=== PATIENT | female | born 1985 | race Caucasian/White ===

== ENCOUNTER 2016-10-22 21:17 | Emergency (ER) | payer OTHER ==
[2016-10-22 21:26] VITALS: BP 120/75
--- NOTE | 2016-10-22 21:45 | EDM.PDOC ---
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 Pain is bad enough that she lies still no position she cannot stand fully erect because of the pain. She's had no previous abdominal surgeries. Illness came on abruptly at about 1700 hours tonight. No blood noted in the diarrhea stools as mostly watery and yellow color. She is feeling better at the time of my examination with less abdominal pain. No vomiting. No fever or chills. No genitourinary complaints. She is clinically 20 weeks gestation. This is 2 para one. She went into early labor at 35 weeks gestation last which was able to be stopped. She is therefore quite anxious about premature labor. 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 (see below) (No) - Related Data Allergies/ADRs: Allergies Allergy/AdvReac Type Severity Reaction Status Date / Time Penicillins Allergy Hives Verified 10/22/16 21:23 Home Meds: Home Meds Vit No.130/Iron/FA [ Vitamins] 1 each PO DAILY 01/15/15 [ History] Ranitidine [Zantac] 12/05/15 [History] Dicyclomine [Bentyl] 20 mg PO Q6H #2 tablet 10/22/16 [Rx] oxyCODONE HCl/Acetaminophen [Percocet 5-325 mg Tablet] 1 - 2 each PO Q4H PRN #5 tablet 10/22/16 [Rx] 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 [place] Teeth 2004 Social & Family History - Tobacco Use Smoking Status *Q: Never Smoker Second Hand Smoke Exposure: No - Alcohol Use Days Per Week of Alcohol Use: 0 - Recreational Drug Use Recreational Drug Use: No - Living Situation & Occupation Living situation: Reports: Occupation: employed ED ROS GENERAL - Review of Systems Review Of Systems: See Below Constitutional: Denies: fever, chills, malaise, weakness, fatigue, decreased appetite, weight loss HEENT: Reports: No symptoms Respiratory: Reports: No Symptoms Cardiovascular: Reports: No symptoms Endocrine: Reports: no symptoms GI/Abdominal: Reports: Abdominal pain (See history present) : Reports: frequency. Denies: dysuria, flank pain, hematuria, incontinence, irregular menses Musculoskeletal: Reports: no symptoms Skin: Reports: no symptoms Neurological: Reports: No Symptoms Psychiatric: Reports: No symptoms, Other Hematologic/Lymphatic: Reports: no symptoms Immunologic: Reports: no symptoms ED EXAM, GI/ABD - Physical Exam Exam: See Below Exam Limited By: No limitations General Appearance: alert, WD/WN, anxious, moderate distress Eyes: bilateral: normal appearance Throat/Mouth: Normal inspection, Normal lips, Normal teeth, Normal oropharynx Head: atraumatic, normocephalic Neck: normal inspection, supple, non-tender, full range of motion Respiratory/Chest: no respiratory distress, lungs clear, normal breath sounds, no accessory muscle use Cardiovascular: normal peripheral pulses, regular rate, rhythm, no edema, no gallop, no JVD, no murmur GI/Abdominal: soft, non tender, hyperactive bowel sounds (Markedly hyperactive bowel sounds in all 4 quadrants.). No: guarding, rebound, rigidity, splenomegaly Back Exam: normal inspection, full range of motion Extremities: normal inspection, normal range of motion, non-tender, no pedal edema, normal capillary refill Neurological: alert, oriented, CN II-XII intact, normal cognition, normal gait Psychiatric: normal affect, anxious Skin Exam: Warm, Dry, Intact, Normal color, No rash Course - Vital Signs Last Recorded V/S: Last Vital Signs Temp 36.7 C 10/22/16 21:23 Pulse 71 10/22/16 21:23 Resp 18 10/22/16 21:23 BP 120/75 10/22/16 21:23 Pulse Ox 100 10/22/16 21:23 - Orders/Labs/Meds Labs: Laboratory Tests 10/22/16 Range/Units 22:00 Urine Color Light yellow (Yellow) Urine Appearance Clear (Clear) Urine pH 7.0 (5.0-8.0) Ur Specific [place] 1.015 (1.005-1.030) Urine Protein Negative (Negative) Urine Glucose (UA) Negative (Negative) Urine Ketones Negative (Negative) Urine Occult Blood 1+ H (Negative) Urine Nitrite Negative (Negative) Urine Bilirubin Negative (Negative) Urine Urobilinogen 0.2 (0.2-1.0) Ur Leukocyte Esterase Negative (Negative) Urine RBC 0-5 (0-5) /hpf Urine WBC 0-5 (0-5) /hpf Ur Epithelial Cells 5-10 H (0-5) /hpf Urine Bacteria Few (FEW) /hpf Urine Mucus Not seen (FEW) /hpf Meds: Medications Discontinued Medications Generic Name Dose Route Start Last Admin Trade Name Lucasq PRN Reason Stop Dose Admin Dicyclomine HCl 20 mg 10/22/16 21:56 10/22/16 22:08 Bentyl PO 10/22/16 21:57 20 mg ONETIME ONE Administration Dicyclomine HCl Confirm 10/22/16 23:22 Bentyl Administered 10/22/16 23:23 Dose 40 mg .ROUTE .STK-MED ONE Oxycodone/Acetaminophen 1 tab 10/22/16 21:56 10/22/16 22:09 Percocet 325-5 Mg PO 10/22/16 21:57 1 tab ONETIME ONE Administration - Radiology Interpretation Free Text/Narrative:: 22-year-old female presents to the ED with acute onset of marked large volume diarrhea stools with diffuse abdominal cramping pain starting about 1700 hours tonight. His reports she's had about 10 bowel movements. She's been drinking Gatorade however without any problems. There is no associated nausea or vomiting. No fever or chills. Diarrhea did not contain any blood. It's watery and slightly yellow in color. No real good history to support foodborne illness since her 's been with her all weekend and eating the same things. On examination shows active bowel sounds in all 4 quadrants. Her abdomen is soft palpation with no organomegaly or masses. Gravid uterus at the umbilicus compatible with 20 weeks gestation. heart tones were documented at 144 on Doppler. She has no vaginal bleeding or spotting. Assessment acute viral gastroenteritis. We'll send her over to OB for her Toprol although at this stage of gestation is hard to picker and packer uterine contractions but I'm not so worried that it'll be positive. She'll have a urinalysis and then come back to the ED after toco was done. Give her Bentyl 20 mg by mouth and one Percocet 5 325 mg tablets to alleviate abdominal cramping pain. She will drink Gatorade 5- 6 ounces per hour. - Re-Assessments/Exams Free Text/Narrative Re-Assessment/Exam: 10/22/16 23:00 patient returned from the OB suite where she had focal paresis carried out for 25 minutes. No significant contractions were appreciated. She has mild cramping at this time. She'll be discharged home on clear fluids as noted above. She may repeat Bentyl 20 mg orally and one Percocet 5 325 mg orally and 6 hours time if needed. Clear fluid diet advised next couple of days. She'll followup with Dr. Rosas if any further problems occur. Departure - Departure Time of Disposition: 21:59 Disposition: Home, Self-Care 01 Condition: fair Clinical Impression: Viral gastroenteritis, Second trimester Prescriptions: Dicyclomine [Bentyl] 20 mg PO Q6H #2 tablet oxyCODONE HCl/Acetaminophen [Percocet 5-325 mg Tablet] 1 - 2 each PO Q4H PRN #5 tablet PRN Reason: pain relief. Instructions: Viral Gastroenteritis, Adult, [id number] Referrals: Elmira Goldman MD [Primary Care Provider] - Forms: ED Department Discharge Additional Instructions: Evaluation in the ED today in regards to development of sudden onset of diffuse abdominal cramping pain and large volume diarrhea fluid loss. No fever. Goodfetal heart tones at 144/min . Very active bowl sounds appreciated on examination. Diagnoisis is viral gastroenteritis. Treatment is to drink gatorade or powerade --5-6 oz sipped per hour to maintain hydration. No dairy products or apple/grape juice until stols are formed back up. When hungry try soda crackers. If tolerated may advance to jello, broth soups and then toast and turkey/noodle/ rice soups etc. leukapheresis carried out did not reveal any signs of uterine contractions.
[2016-10-22] MEDS ORDERED: Acetaminophen/oxyCODONE 325-5 MG Tab PO ONE (21:56)
[2016-10-22] MEDS ORDERED: Dicyclomine 10 MG Cap PO ONE (21:56)
[2016-10-22] MEDS ORDERED: Acetaminophen/oxyCODONE 325-5 MG Tab ONE (23:22)
[2016-10-22] MEDS ORDERED: Dicyclomine 10 MG Cap ONE (23:22)
== END 2016-10-22 23:25 | disposition home or self-care (01) ==
LOC: JD.ED 21:17
DX: O99.89 Other specified diseases and conditions complicating pregnancy, childbirth and the puerperium (principal); A08.4 Viral intestinal infection, unspecified; Z88.0 Allergy status to penicillin; Z79.899 Other long term (current) drug therapy
CPT/HCPCS: 81001; 99284; A9270; 99283

== ENCOUNTER 2017-03-03 19:33 | Inpatient (IN) | payer OTHER ==
[2017-03-03] MEDS ORDERED: Lactated Ringers 1,000 ML ONE (20:13)
[2017-03-03] MEDS ORDERED: Oxytocin 10 Units/1 ML SDV IM ONE (20:28)
[2017-03-03] MEDS ORDERED: Methylergonovine 0.2 MG/1 ML Amp IM PRN (20:28)
[2017-03-03] MEDS ORDERED: Sodium Chloride 0.9% 10 ML Syringe FLUSH PRN (20:28)
[2017-03-03] MEDS: Lactated Ringers 1,000 ML IV SCH ×2 (20:30→22:07)
[2017-03-03] MEDS ORDERED: Oxytocin/Lactated Ringers 10 UNIT/1,000 ML BAG IV SCH ×2 (20:30)
--- NOTE | 2017-03-03 20:36 | PCM.LDHP ---
L&D History of Present Illness - General Date of Service: 03/03/17 Admit Problem/Dx: Admission Diagnosis/Problem Admission Diagnosis/Problem Source of Information: Patient - History of Present Illness Introduction:: 31 year old female at 39w1d presents with complaints of increased discharge and contractions. Cervix 4 cm from 3 cm in clinic yesterday. Uncomfortable with some contractions. PNC with myself complicated by closely spaced pregnancies. 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 [place] Teeth 2004 Social & Family History - Tobacco Use Smoking Status *Q: Never Smoker Second Hand Smoke Exposure: No - Alcohol Use Days Per Week of Alcohol Use: 0 - Recreational Drug Use Recreational Drug Use: No - Living Situation & Occupation Living situation: Reports: Occupation: Employed H&P Review of Systems - Review of Systems: Review Of Systems: See Below General: Reports: No Symptoms HEENT: Reports: No Symptoms Pulmonary: Reports: No Symptoms Cardiovascular: Reports: No Symptoms Gastrointestinal: Reports: No Symptoms Genitourinary: Reports: Discharge Musculoskeletal: Reports: No Symptoms Skin: Reports: No Symptoms Psychiatric: Reports: No Symptoms Neurological: Reports: No Symptoms Hematologic/Lymphatic: Reports: No Symptoms Immunologic: Reports: No Symptoms L&D Exam - Exam Exam: See Below - Vital Signs Weight: 79.379 kg - OB Specific Contraction Intensity: Mild to Moderate Movement: Active Heart Tones: Present Heart Tones per Min: 140 Heart Rate (FHR) Variability: Moderate (6-25 bmp) Presentation: Vertex - [place] Score [place] Score Cervix Position: Midposition [place] Score Consistency: Soft [place] Score Effacement: 51-70% [place] Score Dilation: 3-4 cm [place] Score Infant's Station: -2 [place] Score Total: 8 - Exam General: Alert, Oriented HEENT: PERRLA, Conjunctiva Clear, EACs Clear, EOMI, Hearing Intact, Mucosa Moist & [place], Nares Patent, Normal Nasal Septum, Posterior Pharynx Clear, TMs Clear Neck: Supple, Trachea Midline Lungs: Clear to Auscultation, Normal Respiratory Effort Cardiovascular: Regular Rate, Regular Rhythm GI/Abdominal Exam: Normal Bowel Sounds, Soft, Non-Tender, No Organomegaly, No Distention, No Abnormal Bruit, No Mass, Pelvis Stable Genitourinary: Normal external exam, Normal bimanual exam, Normal speculum exam Back Exam: Normal Inspection, Full Range of Motion Extremities: Normal Inspection, Normal Range of Motion, Non-Tender, No Pedal Edema, Normal Capillary Refill Skin: Warm, Dry, Intact Neurological: Cranial Nerves Intact, Reflexes Equal Bilateral Psychiatric: Alert, Normal Affect, Normal Mood Problem List Initiated/Reviewed/Updated: Yes Orders Last 24hrs: Active Orders 24 hr Category Date Time Status Activity as Tolerated [RC] PFP Care 03/03/17 20:28 Ordered Communication Order [RC] ASDIRECTED Care 03/03/17 20:28 Ordered Heart Tones [RC] ASDIRECTED Care 03/03/17 20:28 Ordered Notify Provider [RC] PFP Care 03/03/17 20:28 Ordered Notify Provider [RC] PRN Care 03/03/17 20:28 Ordered Peripheral IV Care [RC] . DIRECTED Care 03/03/17 20:28 Ordered Vital Signs [RC] PER UNIT ROUTINE Care 03/03/17 20:28 Ordered Regular Diet [DIET] Diet 03/03/17 Breakfast Ordered CBC WITH AUTO DIFF [HEME] Stat Lab 03/03/17 20:28 Ordered Lactated Ringers [Ringers, Lactated] 1,000 ml Med 03/03/17 20:30 Ordered IV ASDIRECTED Methylergonovine [Methergine] Med 03/03/17 20:28 Ordered 0.2 mg IM ONETIME PRN Oxytocin [Pitocin] Med 03/03/17 20:28 Once 10 unit IM ONETIME ONE Oxytocin/Lactated Ringers [Pitocin in LR 10 Units/1,000 Med 03/03/17 20:30 Ordered ML] 10 unit in 1,000 ml IV .CONTINUOUS Oxytocin/Lactated Ringers [Pitocin in LR 10 Units/1,000 Med 03/03/17 20:30 Ordered ML] 10 unit in 1,000 ml IV TITRATE Sodium Chloride 0.9% [Saline Flush] Med 03/03/17 20:28 Ordered 10 ml FLUSH ASDIRECTED PRN Electronic Heart Tones Ext w TOCO [WOMSER] Oth 03/03/17 20:28 Ordered Routine Electronic Heart Tones Internal [WOMSER] Per Unit Ot 03/03/17 20:28 Ordered Routine Peripheral IV Insertion Adult [OM.PC] Routine Ot 03/03/17 20:28 Ordered Resuscitation Status Routine Resus Stat 03/03/17 20:28 Ordered Medication Orders Lactated Ringer's (Ringers, Lactated) 1,000 mls @ 100 mls/hr IV ASDIRECTED SHANICE Oxytocin/Lactated Ringer's (Pitocin In Lr 10 Units/1,000 Ml) 10 unit in 1,000 mls @ 12 mls/hr IV TITRATE SHANICE; 2 MUNITS/MIN PRN Reason: Protocol Oxytocin/Lactated Ringer's (Pitocin In Lr 10 Units/1,000 Ml) 10 unit in 1,000 mls @ 500 mls/hr IV .CONTINUOUS SHANICE Methylergonovine Maleate (Methergine) 0.2 mg IM ONETIME PRN PRN Reason: Excessive Vaginal bleeding Oxytocin (Pitocin) 10 unit IM ONETIME ONE Stop: 03/03/17 20:29 Sodium Chloride (Saline Flush) 10 ml FLUSH ASDIRECTED PRN PRN Reason: Keep Vein Open Assessment/Plan Comment:: Term early labor. Admit CBC, IVF. AROM (clear fluid) Anticipate
[2017-03-03] MEDS ORDERED: fentaNYL 100 MCG/2 ML SDV EPIDUR PRN (21:06)
[2017-03-03] MEDS ORDERED: ePHEDrine 50 MG/ML SDV IVPUSH PRN (21:06)
[2017-03-03] MEDS ORDERED: Ondansetron 4 MG/2 ML SDV IVPUSH PRN (21:06)
--- NOTE | 2017-03-03 21:57 | PCM.PREANE ---
Preanesthetic Assessment - Anesthesia/Transfusion/Family Hx Anesthesia History: Prior Anesthesia Without Reaction Family History of Anesthesia Reaction: No Transfusion History: No Prior Transfusion(s) Intubation History: Unknown - Review of Systems General: No Symptoms Pulmonary: No Symptoms Cardiovascular: No Symptoms Gastrointestinal: No Symptoms (GERD) Neurological: No Symptoms Other: Reports: None - Physical Assessment NPO Status Date: 03/03/17 NPO Status Time: 17:00 Pulse: 62 O2 Sat by Pulse Oximetry: 100 Respiratory Rate: 23 Blood Pressure: 129/56 Temperature: 36.9 C Height: 1.6 m Weight: 79.379 kg ASA Class: 2 Mental Status: Alert & Oriented x3 Airway Class: Mallampati = 2 Dentition: Reports: Normal Dentition, Caries Thyro-Mental Finger Breadths: 3 Mouth Opening Finger Breadths: 3 ROM/Head Extension: Full Lungs: Clear to Auscultation, Normal Respiratory Effort Cardiovascular: Regular Rate, Regular Rhythm - Lab Values: Laboratory Last Values WBC 10.53 K/mm3 (3.98-10.04) H 03/03/17 20:45 RBC 3.54 M/mm3 (3.98-5.22) L 03/03/17 20:45 Hgb 10.5 gm/L (11.2-15.7) L 03/03/17 20:45 Hct 31.6 % (34.1-44.9) L 03/03/17 20:45 MCV 89.3 fl (79.4-94.8) 03/03/17 20:45 MCH 29.7 pg (25.6-32.2) 03/03/17 20:45 MCHC 33.2 g/dl (32.2-35.5) 03/03/17 20:45 RDW Std Deviation 41.9 fL (36.4-46.3) 03/03/17 20:45 Plt Count 163 K/mm3 (182-369) L 03/03/17 20:45 MPV 11.1 fl (9.4-12.3) 03/03/17 20:45 Neut % (Auto) 58.0 % (34.0-71.1) 03/03/17 20:45 Lymph % (Auto) 30.1 % (19.3-51.7) 03/03/17 20:45 [place] % (Auto) 9.6 % (4.7-12.5) 03/03/17 20:45 Eos % (Auto) 1.1 (0.7-5.8) 03/03/17 20:45 Baso % (Auto) 0.2 % (0.1-1.2) 03/03/17 20:45 Neut # (Auto) 6.10 K/mm3 (1.56-6.13) 03/03/17 20:45 Lymph # (Auto) 3.17 K/mm3 (1.18-3.74) 03/03/17 20:45 [place] # (Auto) 1.01 K/mm3 (0.24-0.36) H 03/03/17 20:45 Eos # (Auto) 0.12 K/mm3 (0.04-0.36) 03/03/17 20:45 Baso # (Auto) 0.02 K/mm3 (0.01-0.08) 03/03/17 20:45 Manual Slide Review Normal smear 03/03/17 20:45 - Allergies Allergies/Adverse Reactions: Allergies Allergy/AdvReac Type Severity Reaction Status Date / Time Penicillins Allergy Hives Verified 03/03/17 20:01 - Acknowledgements Anesthesia Type Planned: Epidural Pt an Appropriate Candidate for the Planned Anesthesia: Yes Alternatives and Risks of Anesthesia Discussed w Pt/Guardian: Yes Pt/Guardian Understands and Agrees with Anesthesia Plan: Yes 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 [place] Teeth 2003 - SUBSTANCE USE Smoking Status *Q: Never Smoker Second Hand Smoke Exposure: No Days Per Week of Alcohol Use: 0 Recreational Drug Use History: No - HOME MEDS Home Medications: Home Meds Vit No.130/Iron/FA [ Vitamins] 1 each PO DAILY 01/15/15 [ History] Ranitidine [Zantac] 12/05/15 [History] Dicyclomine [Bentyl] 20 mg PO Q6H #2 tablet 10/22/16 [Rx] oxyCODONE HCl/Acetaminophen [Percocet 5-325 mg Tablet] 1 - 2 each PO Q4H PRN #5 tablet 10/22/16 [Rx] - CURRENT (IN HOUSE) MEDS Current Meds: Current Medications Ephedrine Sulfate (Ephedrine Sulfate) 5 mg IVPUSH ASDIRECTED PRN PRN Reason: Hypotension Fentanyl (Sublimaze) 100 mcg EPIDUR Q3H PRN PRN Reason: Pain Fentanyl/Bupivacaine HCl (Fentanyl/Bupivacaine/Ns 2 Mcg-0.125% 100 Ml) 100 ml EPIDUR ASDIRECTED SHANICE Lactated Ringer's (Ringers, Lactated) 1,000 mls @ 100 mls/hr IV ASDIRECTED SHANICE Oxytocin/Lactated Ringer's (Pitocin In Lr 10 Units/1,000 Ml) 10 unit in 1,000 mls @ 12 mls/hr IV TITRATE SHANICE; 2 MUNITS/MIN PRN Reason: Protocol Oxytocin/Lactated Ringer's (Pitocin In Lr 10 Units/1,000 Ml) 10 unit in 1,000 mls @ 500 mls/hr IV .CONTINUOUS SHANICE Methylergonovine Maleate (Methergine) 0.2 mg IM ONETIME PRN PRN Reason: Excessive Vaginal bleeding Ondansetron HCl (Zofran) 4 mg IVPUSH ONETIME PRN PRN Reason: Nausea/Vomiting Sodium Chloride (Saline Flush) 10 ml FLUSH ASDIRECTED PRN PRN Reason: Keep Vein Open Discontinued Medications Lactated Ringer's (Ringers, Lactated) Confirm Administered Dose 1,000 mls @ as directed .ROUTE .STK-MED ONE Stop: 03/03/17 20:14 Oxytocin (Pitocin) 10 unit IM ONETIME ONE Stop: 03/03/17 20:29
[2017-03-03] MEDS: Bupivacaine/fentaNYL/NS 100 ML Bag EPIDUR SCH (21:59)
[2017-03-04] MEDS: Lactated Ringers 1,000 ML IV SCH (01:30)
[2017-03-04] MEDS: Bupivacaine/fentaNYL/NS 100 ML Bag EPIDUR SCH (06:52)
[2017-03-04] MEDS ORDERED: Lanolin 100% Cream 7 GM Tube TOP PRN (07:57)
[2017-03-04] MEDS ORDERED: Docusate Sodium 100 MG Cap PO PRN (07:57)
[2017-03-04] MEDS ORDERED: Hydrocortisone Acetate 25 MG Supp RECTAL PRN (07:57)
[2017-03-04] MEDS ORDERED: Witch Hazel Medicated Pads 100/Jar TOP PRN (07:57)
[2017-03-04] MEDS ORDERED: Benzocaine/Menthol 20%-0.5% Spray 56 GM Canister TOP PRN (07:57)
[2017-03-04] MEDS: Ibuprofen 600 MG Tab PO PRN ×2 (09:14→19:56)
--- NOTE | 2017-03-04 09:43 | PCM48HPAN ---
Post Anesthesia Note - EVALUATION WITHIN 48HRS OF ANESTHETIC Vital Signs in Normal Range: Yes Patient Participated in Evaluation: Yes Respiratory Function Stable: Yes Airway Patent: Yes Cardiovascular Function Stable: Yes Hydration Status Stable: Yes Pain Control Satisfactory: Yes Nausea and Vomiting Control Satisfactory: Yes Mental Status Recovered: Yes
[2017-03-04] MEDS ORDERED: Bupivacaine 0.25% 10 ML SDV ONE (22:22)
[2017-03-05] MEDS: Ibuprofen 600 MG Tab PO PRN (06:13)
[2017-03-05 06:51] VITALS: BP 134/80
--- NOTE | 2017-03-05 08:44 | PCM.DCSUM1 ---
Discharge Summary - Hospital Course HPI Initial Comments: Admitted in labor - Discharge Data Discharge Date: 03/05/17 Discharge Disposition: Home, Self-Care 01 Condition: Good - Patient Summary/Data Operative Procedure(s) Performed: - Patient Instructions Diet: Usual Diet as Tolerated Activity: No Strenuous Activities Driving: May Drive Today Showering/Bathing: May Shower Notify Provider of: Fever, Increased Pain, Swelling and Redness, Drainage, Nausea and/or Vomiting - Discharge Plan Home Medications: Home Meds Vit No.130/Iron/FA [ Vitamins] 1 each PO DAILY 01/15/15 [ History] Ranitidine [Zantac] 12/05/15 [History] Dicyclomine [Bentyl] 20 mg PO Q6H #2 tablet 10/22/16 [Rx] oxyCODONE HCl/Acetaminophen [Percocet 5-325 mg Tablet] 1 - 2 each PO Q4H PRN #5 tablet 10/22/16 [Rx] Referrals: Elmira Goldman MD [Primary Care Provider] - (6 weeks) - Discharge Summary/Plan Comment DC Time >30 min.: No - General Info Date of Service: 03/05/17 Functional Status: Reports: Pain Controlled - Review of Systems General: Reports: No Symptoms HEENT: Reports: No Symptoms Pulmonary: Reports: No Symptoms Cardiovascular: Reports: No Symptoms Gastrointestinal: Reports: No Symptoms Genitourinary: Reports: No Symptoms Musculoskeletal: Reports: No Symptoms Skin: Reports: No Symptoms Neurological: Reports: No Symptoms Psychiatric: Reports: No Symptoms - Patient Data Vitals - Most Recent: Last Vital Signs Temp 36.4 C 03/05/17 05:56 Pulse 78 03/05/17 05:56 Resp 15 03/05/17 05:56 BP 134/80 03/05/17 05:56 Pulse Ox 100 03/03/17 21:58 Weight - Most Recent: 86.636 kg Lab Results - Last 24 hrs: Laboratory Results - last 24 hr 03/05/17 Range/Units 06:50 WBC 13.85 H (3.98-10.04) K/mm3 RBC 3.69 L (3.98-5.22) M/mm3 Hgb 11.1 L (11.2-15.7) gm/L Hct 33.5 L (34.1-44.9) % MCV 90.8 (79.4-94.8) fl MCH 30.1 (25.6-32.2) pg MCHC 33.1 (32.2-35.5) g/dl RDW Std Deviation 43.5 (36.4-46.3) fL Plt Count 203 (182-369) K/mm3 MPV 11.8 (9.4-12.3) fl Med Orders - Current: Current Medications Benzocaine/Menthol (Dermoplast Pain Relief [place]) 0 gm TOP ASDIRECTED PRN PRN Reason: Perineal Comfort Measure Last Admin: 03/04/17 09:13 Dose: 1 canister Docusate Sodium (Colace) 100 mg PO BID PRN PRN Reason: Constipation Last Admin: 03/04/17 09:12 Dose: 100 mg Emollient Ointment (Lansinoh Hpa) 0 gm TOP ASDIRECTED PRN PRN Reason: Sore Nipples Hydrocortisone Acetate (Anucort-Hc) 25 mg RECTAL BID PRN PRN Reason: Hemorrhoid pain Last Admin: 03/04/17 09:11 Dose: 25 mg Ibuprofen (Motrin) 600 mg PO Q6H PRN PRN Reason: Mild pain or fever Last Admin: 03/05/17 06:13 Dose: 600 mg Witch Sanjuana (Tucks) 1 pad TOP ASDIRECTED PRN PRN Reason: Hemorrhoid pain Last Admin: 03/04/17 09:13 Dose: 1 canister Discontinued Medications Bupivacaine HCl (Sensorcaine-Mpf 0.25%) 10 ml .ROUTE .STK-MED ONE Stop: 03/04/17 22:23 Ephedrine Sulfate (Ephedrine Sulfate) 5 mg IVPUSH ASDIRECTED PRN PRN Reason: Hypotension Fentanyl (Sublimaze) 100 mcg EPIDUR Q3H PRN PRN Reason: Pain Last Admin: 03/03/17 21:59 Dose: 100 mcg Fentanyl/Bupivacaine HCl (Fentanyl/Bupivacaine/Ns 2 Mcg-0.125% 100 Ml) 100 ml EPIDUR ASDIRECTED SHANICE Last Admin: 03/04/17 06:52 Dose: 100 ml Lactated Ringer's (Ringers, Lactated) Confirm Administered Dose 1,000 mls @ as directed .ROUTE .STK-MED ONE Stop: 03/03/17 20:14 Last Admin: 03/04/17 15:31 Dose: Not Given Lactated Ringer's (Ringers, Lactated) 1,000 mls @ 100 mls/hr IV ASDIRECTED SHANICE Last Admin: 03/04/17 01:30 Dose: 100 mls/hr Oxytocin/Lactated Ringer's (Pitocin In Lr 10 Units/1,000 Ml) 10 unit in 1,000 mls @ 12 mls/hr IV TITRATE SHANICE; 2 MUNITS/MIN PRN Reason: Protocol Last Titration: 03/04/17 07:56 Dose: 500 mls/hr Oxytocin/Lactated Ringer's (Pitocin In Lr 10 Units/1,000 Ml) 10 unit in 1,000 mls @ 500 mls/hr IV .CONTINUOUS SHANICE Methylergonovine Maleate (Methergine) 0.2 mg IM ONETIME PRN PRN Reason: Excessive Vaginal bleeding Ondansetron HCl (Zofran) 4 mg IVPUSH ONETIME PRN PRN Reason: Nausea/Vomiting Oxytocin (Pitocin) 10 unit IM ONETIME ONE Stop: 03/03/17 20:29 Last Admin: 03/04/17 15:32 Dose: Not Given Sodium Chloride (Saline Flush) 10 ml FLUSH ASDIRECTED PRN PRN Reason: Keep Vein Open - Exam General: Reports: Alert, Oriented HEENT: Reports: Pupils Equal, Pupils Reactive, EOMI, Mucous Membr. Moist/[place] Neck: Reports: Supple Lungs: Reports: Clear to Auscultation, Normal Respiratory Effort Cardiovascular: Reports: Regular Rate, Regular Rhythm GI/Abdominal Exam: Normal Bowel Sounds, Soft, Non-Tender, No Organomegaly (Female) Exam: Normal External Exam, Normal Speculum Exam, Normal Bimanual Exam Back Exam: Reports: Normal Inspection, Full Range of Motion Extremities: Normal Inspection, Normal Range of Motion, Non-Tender, No Pedal Edema, Normal Capillary Refill Skin: Reports: Warm, Dry, Intact Wound/Incisions: Reports: Healing Well Neurological: Reports: No New Focal Deficit Psy/Mental Status: Reports: Alert, Normal Affect, Normal Mood *Q Meaningful Use (DIS) - VTE *Q VTE Criteria *Q: - Stroke *Q Stroke Criteria *Q: - AMI *Q AMI Criteria *Q:
== END 2017-03-05 10:10 | disposition home or self-care (01) | DRG 775 ==
LOC: JD.OBCHECK 19:33 → JD.OB 19:35 → JD.OBCHECK 03-04 01:00 → UNDOADMOB 03-04 01:01 → JD.OB 03-04 01:01 → OBSVTOIN 03-04 07:25 → JD.OB 03-04 07:25
PROVIDERS: ADMIT Obstetrics & Gynecology; ATTEND Obstetrics & Gynecology
PROC: 10E0XZZ Delivery of Products of Conception, External Approach (ICD-10-PCS; principal; 2017-03-04)
PROC: 0HQ9XZZ Repair Perineum Skin, External Approach (ICD-10-PCS; 2017-03-04)
PROC: 10907ZC Drainage of Amniotic Fluid, Therapeutic from Products of Conception, Via Natural or Artificial Opening (ICD-10-PCS; 2017-03-04)
PROC: 00HU33Z Insertion of Infusion Device into Spinal Canal, Percutaneous Approach (ICD-10-PCS; 2017-03-04)
PROC: 3E0R3CZ (ICD-10-PCS; 2017-03-04)
DX: O70.0 First degree perineal laceration during delivery (principal); Z3A.39 39 weeks gestation of pregnancy; Z37.0 Single live birth; Z88.0 Allergy status to penicillin
CPT/HCPCS: 36415; 85025; 85027; A9270-GY; J2590; J3010; J7120